=== PATIENT | female | born 1975 | race Caucasian/White ===

== ENCOUNTER 2018-05-22 22:16 | Emergency (ER) | payer OTHER ==
[~2018-05-22] VITALS: Ht 160 cm; Wt 79.4 kg
[~2018-05-22 22:16] MED LIST: AMBIEN 5 MG TABL5 MG; ATIVAN1 MG PO; BACTRIM DS TAB1 EACH PO; BENTYL20 MG PO; CARAFATE 1 GM TA1 G1 PO; CARAFATE1 GM/10 ML PO; CIPROFLOXACIN500 M1 PO; CLONAZEPAM PO; DARVOCET-N 1001 EACH PO; DIFLUCAN150 MG PO; DOXYCYCLINE 10100 MG PO; FLAGYL500 MG PO; FLEXERIL PO; GABAPENTIN; IMIPRAMINE HCL50 M2 PO; IMODIUM ADVANC1 EAC1 PO; LEXAPRO20 MG PO; LITHIUM CARBON300 M3 PO; METROGEL-VAGINA70 GM VG; NOHOMEMEDICATIONS; NORCO 5-325 TA1 EACH PO; NORFLEX100 MG PO; ONDANSETRON ODT4 MG PO; OXYCODONE HCL 55 MG PO; PERCOCET 10-651 EACH PO; PERCOCET 5-3251 EACH PO; PERCOCET 7.5-51 EACH PO; POTASSIUM20 PO; PREMARIN0.3 MG; PREVACID30 M1 PO; PRILOSEC40 MG PO; PROVENTIL HFA6.7 G1 INH; TIZANIDINE HCL4 MG PO; TOPAMAX50 MG PO; TRILEPTAL 300300 MG PO; VALIUM2 MG PO; VALIUM5 MG PO; VICODIN 5-5001 EACH PO; ZANTAC 150MG T150 M1 PO; ZOFRAN ODT4 MG PO; ZOFRAN4 MG PO
[2018-05-22] MEDS ORDERED: NORCO 5-325 TA1 EACH PO (23:10)
[2018-05-22] MEDS ORDERED: CLEOCIN HCL150 MG PO (23:10)
[2018-05-22 23:26] VITALS: BP 144/99
== END 2018-05-22 23:26 | disposition home or self-care (01) ==
LOC: ER 22:16
DX: K02.9 Dental caries, unspecified (principal); F17.210 Nicotine dependence, cigarettes, uncomplicated; Z88.6 Allergy status to analgesic agent; Z88.5 Allergy status to narcotic agent; Z88.8 Allergy status to other drugs, medicaments and biological substances; Z88.0 Allergy status to penicillin; Z90.710 Acquired absence of both cervix and uterus; Z98.890 Other specified postprocedural states

== ENCOUNTER 2018-08-28 18:25 | Emergency (ER) | payer OTHER ==
[~2018-08-28] VITALS: Ht 160 cm; Wt 70.3 kg
[~2018-08-28 18:25] MED LIST changes: +CLEOCIN HCL150 MG PO; +SENNA-DOCUSATE1 EACH PO; +TRIPLE ANTIBI28.4 G2 TOP; +TYLENOL EXTRA500 MG; +ZANAFLEX4 MG PO
== END 2018-08-28 19:04 | disposition home or self-care (01) ==
LOC: ER 18:25
DX: R41.82 Altered mental status, unspecified (principal); Z90.710 Acquired absence of both cervix and uterus; F17.210 Nicotine dependence, cigarettes, uncomplicated; Z88.5 Allergy status to narcotic agent; Z88.0 Allergy status to penicillin

== ENCOUNTER 2018-09-30 13:55 | Emergency (ER) | payer OTHER ==
[~2018-09-30] VITALS: Ht 160 cm; Wt 70.3 kg
[2018-09-30] MEDS ORDERED: CLEOCIN HCL150 MG PO (16:17)
[2018-09-30 16:37] VITALS: BP 122/87
== END 2018-09-30 16:39 | disposition home or self-care (01) ==
LOC: ER 13:55
DX: J02.9 Acute pharyngitis, unspecified (principal); F17.210 Nicotine dependence, cigarettes, uncomplicated; Z88.6 Allergy status to analgesic agent; Z88.5 Allergy status to narcotic agent; Z88.8 Allergy status to other drugs, medicaments and biological substances; Z88.0 Allergy status to penicillin; Z98.890 Other specified postprocedural states; Z90.710 Acquired absence of both cervix and uterus

== ENCOUNTER 2019-10-27 03:09 | Emergency (ER) | payer OTHER ==
[~2019-10-27] VITALS: Ht 160 cm; Wt 61.2 kg
[2019-10-27 03:54] LABS: URINE BILIRUBIN NEGATIVE (Negative); URINE BLOOD 3+ (Negative); URINE CLARITY CLEAR; URINE COLOR YELLOW; URINE GLUCOSE-RANDOM* NEGATIVE (Negative); URINE KETONES NEGATIVE (Negative); URINE PROTEIN (DIPSTICK) NEGATIVE (Negative); URINE SPECIFIC GRAVITY <= 1.005 (1.005-1.035); URINE UROBILINOGEN 0.2 E.U./dl (0.2-1.0)
[2019-10-27 04:09] LABS: URINE LEUKOCYTES-REFLEX 2+ (Negative); URINE NITRITE-REFLEX POSITIVE (Negative)
[2019-10-27 04:11] LABS: CASTS None Seen /LPF (None Seen); CRYSTALS None Seen /LPF (None Seen); MUCUS 0-3 Light strn/LPF (None Seen); SQUAMOUS None Seen /LPF (0-3); URINE RBC 3-10 Few /HPF (0-2)
[2019-10-27 04:15] LABS: AMP/METHAMP POSITIVE (Negative); BARBITURATES Negative (Negative); BENZODIAZEPINES Negative (Negative); COCAINE Negative (Negative); METHADONE Negative (Negative); OPIATES Negative (Negative); PCP Negative (Negative)
[2019-10-27] MEDS ORDERED: KEFLEX500 M1 PO (04:24)
[2019-10-27] MEDS ORDERED: PYRIDIUM200 MG PO (04:24)
[2019-10-27 04:45] VITALS: BP 139/86
== END 2019-10-27 04:45 | disposition home or self-care (01) ==
LOC: ER 03:09
PROVIDERS: Emergency Medicine
DX: N39.0 Urinary tract infection, site not specified (principal); M54.5 Low back pain; F15.10 Other stimulant abuse, uncomplicated; F17.210 Nicotine dependence, cigarettes, uncomplicated; Z90.710 Acquired absence of both cervix and uterus; Z88.6 Allergy status to analgesic agent; Z88.5 Allergy status to narcotic agent; Z88.0 Allergy status to penicillin; Z88.8 Allergy status to other drugs, medicaments and biological substances